=== PATIENT | female | born 1945 | race Caucasian/White ===

== ENCOUNTER 2017-11-15 08:32 | Day surgery (SDC) | payer MEDICARE, OTHER ==
[2017-11-15] VITALS (9 sets, daily range): BP systolic 94–114; BP diastolic 54–63
[~2017-11-15] VITALS: Ht 153.9 cm; Wt 63.5 kg
--- NOTE | 2017-11-15 07:01 | Anethesia Preoperative Eval ---
Anesthesia Pre-op PMH/ROS General Date of Evaluation: Nov 15, 2017 Time of Evaluation: 06:59 Anesthesiologist: neelam ASA Score: ASA 3 Mallampati Score Class I : Soft palate, uvula, fauces, pillars visible Class II: Soft palate, uvula, fauces visible Class III: Soft palate, base of uvula visible Class IV: Only hard plate visible Mallampati Classification: Class II Surgeon: romina Diagnosis: gerd Surgical Procedure: egd, possible dilatation of esophagus Anesthesia History: none Social History: current smoker Family History: no anesthesia problems Allergies: Coded Allergies: NO KNOWN ALLERGIES (Verified Allergy, Unknown, 07/22/14) pt unsure of what her allergies are Medications: see eMAR Past Medical History Cardiovascular: Reports: HTN, other - hypercholesterolemia Gastrointestinal/Genitourinary: Reports: GERD Musculoskeletal/Integumentary: Reports: OA, other - osteoporosis, back pain, bilateral knee replacement Anesthesia Pre-op Phys. Exam Physician Exam Last Vital Signs Date Time Temp Pulse Resp B/P (MAP) Pulse Ox O2 Delivery O2 Flow Rate FiO2 11/15/17 09:11 Room Air 11/15/17 09:06 98.2 71 18 98/57 (71) 96 98.2 Constitutional: NAD Neurologic: CN 2-12 intact Cardiovascular: RRR Respiratory: CTA Gastrointestinal: S/NT/ND Airway Exam Mallampati Score: Class II MO: limited Neck: supple TMD: 2fb ROM: limited Anesthesia Pre-op A/P Risk Assessment & Plan Assessment: asa3 Plan: mac Pre-Antibiotics Drug: Sharon Johnson MD Nov 15, 2017 07:01
[~2017-11-15 08:32] MED LIST: AMBIEN10 MG ORAL; ASPIR-LOW81 MG ORAL; ATENOLOL50 MG ORAL; Atropine Inj 1mg/10ml Syr IV PRN; CELEBREX200 MG ORAL; CLARITIN10 M2 ORAL; CRESTOR20 MG ORAL; DEXILANT60 MG ORAL; DiphenhydrAMINE 50mg/ml Inj IVP PRN; LR 1000ml 1,000 ML IVLG SCH; Labetalol 5mg/ml 20ml vial IV PRN; Midazolam 2mg/2ml Inj IVP PRN; NEXIUM20 M1 ORAL; PRILOSEC OTC20 MG ORAL; REGLAN5 MG ORAL; SODIUM BICARBO650 MG PO; VITAMIN D2000 UNI2 PO; ZANTAC150 MG ORAL; ZETIA10 MG ORAL; fentaNYL 100 mcg/2 mL IV PRN
[2017-11-15] MEDS ORDERED: Lidocaine 1% MPF 10mg/ml 5ml ONE (09:00)
[2017-11-15] MEDS ORDERED: Propofol 200mg/20ml IV ONE (09:00)
[2017-11-15] MEDS ORDERED: LR 1000ml ONE (09:00)
--- NOTE | 2017-11-15 09:20 | Short Stay Surgery H&P ---
History of Present Illness History of Present Illness Chief Complaint History of chronic heartburn and possible esophageal narrowing per X-Ray? HPI Lorna Marquez is a 72 year old female who was admitted on for GERD Patient History Allergies: Coded Allergies: NO KNOWN ALLERGIES (Verified Allergy, Unknown, 07/22/14) pt unsure of what her allergies are PAST MEDICAL HISTORY: (1) Hyperlipidemia (2) Arthralgia Medication History Scheduled Aspirin* (Aspir-Low*), 81 MG ORAL DAILY, (Reported) Atenolol* (Tenormin*), 50 MG ORAL DAILY, (Reported) Cholecalciferol (Vitamin D3) (Vitamin D), 2,000 UNIT PO DA, (Reported) Dexlansoprazole (Dexilant), 60 MG ORAL DAILY, (Reported) Ezetimibe (Zetia*), 10 MG ORAL 3XW, (Reported) Loratadine (Claritin), 10 MG ORAL DAILY, (Reported) Metoclopramide Hcl* (Reglan*), 5 MG ORAL DAILY, (Reported) Omeprazole Magnesium (Prilosec Otc), 40 MG ORAL DAILY, (Reported) Ranitidine Hcl* (Zantac*), 150 MG ORAL DAILY, (Reported) Rosuvastatin Calcium* (Crestor*), 20 MG ORAL 3X A WEEK, (Reported) Sodium Bicarbonate* (Nahco3*), 650 MG PO DA, (Reported) Scheduled PRN Zolpidem Tartrate* (Ambien*), 10 MG ORAL BEDTIME PRN for Insomnia, (Reported) Discontinued Medications Celecoxib* (Celebrex*), 200 MG ORAL DAILY, (Reported) Discontinued Reason: Pt stopped taking med Esomeprazole Magnesium (Nexium), 20 MG ORAL DAILY, (Reported) Discontinued Reason: Pt stopped taking med Review of Systems Cardiovascular: Reports: no symptoms Respiratory: Reports: no symptoms Skeletal: Reports: osteroarthritis Gastrointestinal: Reports: gastro esophageal reflux disease Genitourinary: Reports: no symptoms Neurologic: Reports: no symptoms Endocrine: Reports: no symptoms Hematologic: Reports: no symptoms Physical Exam Vital Signs Last Vital Signs Date Time Temp Pulse Resp B/P (MAP) Pulse Ox O2 Delivery O2 Flow Rate FiO2 11/15/17 09:11 Room Air 11/15/17 09:06 98.2 71 18 98/57 (71) 96 98.2 Skin: normal HENT: normal Heart: normal Lungs: normal Abdomen: abnormal Extremities: normal Genitourinary: normal Plan Plan of Care Upper GI endoscopy and biopsy Preop Interventions None. Summary of Findings see the reports Attestation Are the patient's medical conditions optimized for surgery? Attestation Response: yes Mercedes Ireland MD Nov 15, 2017 09:20
--- NOTE | 2017-11-15 09:21 | Pre-Procedure Note/Attestation ---
Pre-Procedure Note/Attestation Complete Prior to Procedure Planned Procedure: left Procedure Narrative: Examiantion of the upper GI traact and possible biopsy and dilation of the esophagus Indications for Procedure Pre-Operative Diagnosis: R/O Esophagitis/gastritis Attestation I attest that I discussed the nature of the procedure; its benefits; risks and complications; and alternatives (and the risks and benefits of such alternatives ), prior to the procedure, with the patient (or the patient's legal car sales representative). I attest that, if there was a reasonable possibility of needing a blood transfusion, the patient (or the patient's legal car sales representative) was given the [facility] standardized written summary, pursuant to the [place] Blood Safety Act ([place] Health and Safety Code # 1645, as amended). I attest that I re-evaluated the patient just prior to the surgery and that there has been no change in the patient's H&P, except as documented below: Mercedes Ireland MD Nov 15, 2017 09:21
--- NOTE | 2017-11-15 09:49 | Discharge Instructions ---
Discharge Instructions Discharge Instructions Follow up with: See the docotor after 2 weeks after two weeks. For Congestive Heart Failure Reminder Report to your physician any weight gain of 5 pounds or more in one week. Mercedes Ireland MD Nov 15, 2017 09:49
--- NOTE | 2017-11-15 09:49 | Endoscopy Procedure Note ---
Endoscopy Procedure Note General Indication for Procedure: Gerds and possible esophageal stricture? Procedures Performed: EGD - Completely Normal Upper Upper GI. Endoscopy. Biopsy was done per random from gastric body. No esophageal narrowing/stricture etc. noted Specimen: yes Pt Tolerated Procedure Well: Yes Estimated Blood Loss: none Anesthesia Anesthesiologist: Dr. Connors Anesthesia: moderate sedation Medications Medication Given: see anesthesia record Inserted Devices Implant(s) used?: No GI Core Measures 50 yrs or older w/o bx or poly: Not Applicable 10yrs. F/U not recommended: Not Applicable If not recommended, why?: Med reason:<3 yrs.: System Reason:<3 yrs.: Mercedes Ireland MD Nov 15, 2017 09:49
--- NOTE | 2017-11-15 11:50 | Immediate Post-Op Evaluation ---
Immediate Post-Op Evalulation Immediate Post-Op Evalulation Procedure: egd w/bx Date of Evaluation: Nov 15, 2017 Time of Evaluation: 10:09 IV Fluids: 200ml lr Blood Products: none Estimated Blood Loss: negligible Blood Pressure Systolic: 105 Blood Pressure Diastolic: 63 Pulse Rate: 62 Respiratory Rate: 18 O2 Sat by Pulse Oximetry: 99 Temperature (Fahrenheit): 97.1 Pain Score (1-10): 0 Nausea: No Vomiting: No Complications none Patient Status: awake, reacts, patent Hydration Status: adequate Drug: Sharon Johnson MD Nov 15, 2017 11:50
--- NOTE | 2017-11-15 11:50 | 48 Hour Post Anesthesia Eval ---
Post Anesthesia Evaluation Procedure: egd w/bx Date of Evaluation: Nov 15, 2017 Time of Evaluation: 10:11 Blood Pressure Systolic: 107 0: 59 Pulse Rate: 65 Respiratory Rate: 18 Temperature (Fahrenheit): 97.1 O2 Sat by Pulse Oximetry: 99 Airway: patent Nausea: No Vomiting: No Pain Intensity: 0 Hydration Status: adequate Cardiopulmonary Status: stable Mental Status/LOC: patient returned to baseline Post-Anesthesia Complications: none Follow-up care needed: N/A Sharon Skinner MD Nov 15, 2017 11:50
--- NOTE | 2017-11-21 09:00 | Procedure Note ---
DATE OF PROCEDURE: 11/15/2017 SURGEON: Mercedes Ireland M.D. PROCEDURE: Esophagogastroduodenoscopy with biopsy. PREOPERATIVE DIAGNOSIS: History of chronic gastroesophageal reflux, rule out esophageal stricture narrowing. POSTOPERATIVE DIAGNOSIS: Completely normal upper GI endoscopy. No evidence of esophageal strictures or abnormality noted. Biopsy was taken per random from gastric body. MEDICATION USED: Per Dr. Connors, anesthesiologist. INSTRUMENT: GIF Olympus upper GI video endoscope. DESCRIPTION OF PROCEDURE: The patient after arriving endoscopy unit, was told about risks and benefits of the procedure. She accepted and signed informed consent and subsequently, she was put in the left lateral decubitus position. After adequate IV sedation, the scope was gently passed through the cricopharyngeal area, was lodged into the upper esophagus, and gradually advanced towards gastroesophageal junction. The entire length of the esophagus as examined very carefully revealed no any evidence of abnormality such as ulcers, stricture, dilatation, or inflammatory process. The scope was gradually advanced towards gastroesophageal junction, which also looked normal without any evidence of Pugh's or hiatal hernia. At this time, the scope was advanced into the stomach. Gastric cavity was distended. Gastric folds were examined gradually from the fundus and the body and the antrum, which they all looked completely normal without any evidence of inflammatory process, ulcers, tumors, polyps, etc. Subsequently, the scope was passed through normal looking pylorus. First and second portion of duodenum were also found to be completely normal. At this point, the scope was pulled back into the stomach and the random biopsy from gastric body obtained and subsequently, the procedure was terminated. The patient tolerated the procedure well and left the endoscopy room in a good condition. Mercedes Ireland M.D. DR: ADELA JOB#: [id number] CC:
== END 2017-11-15 11:10 | disposition home or self-care (01) ==
LOC: GAS 08:32
DX: K21.9 Gastro-esophageal reflux disease without esophagitis (principal); E78.5 Hyperlipidemia, unspecified; M19.90 Unspecified osteoarthritis, unspecified site; I10 Essential (primary) hypertension; M81.0 Age-related osteoporosis without current pathological fracture; F17.200 Nicotine dependence, unspecified, uncomplicated; Z79.82 Long term (current) use of aspirin; Z96.653 Presence of artificial knee joint, bilateral
CPT/HCPCS: 43239; J2704; J7120; 94003; 94150